=== PATIENT | male | born 1995 | race Asian ===

== ENCOUNTER 2017-06-15 05:32 | Inpatient (IN) | payer BC ==
[~2017-06-15] VITALS: Ht 188 cm; Wt 181.7 kg
[2017-06-15 06:55] LABS: BASOPHIL % 0.6 % (0-2); PLATELET COUNT 267 x10^3mcL (130-400)
[2017-06-15 07:08] LABS: CALCIUM 8.7 mg/dL (8.5-10.1); CHLORIDE SERUM 103 mmol/L (98-107); CREATININE SERUM 0.9 mg/dL (0.7-1.3); GFR1 > 60 mL/min; GLUCOSE SERUM 110 mg/dL (74-106); POTASSIUM SERUM 4.2 mmol/L (3.5-5.1); SODIUM SERUM 140 mmol/L (136-145)
[2017-06-15 07:12] LABS: ALBUMIN 3.3 g/dL (3.4-5.0); ALKALINE PHOSPHATASE 124 U/L (46-116); ALT/SGPT 71 U/L (16-63); AST/SGOT 44 U/L (15-37); BILIRUBIN TOTAL 0.42 mg/dL (0.20-1.00); TOTAL PROTEIN, SERUM 7.5 g/dL (6.4-8.2)
[2017-06-15 07:36] LABS: T3 TOTAL 1.57 ng/mL
[2017-06-15 07:55] LABS: FREE T4 0.95 ng/dL (0.76-1.46); FREE THYROXINE INDEX 2.9 ug/dL (1.4-4.5); T4(THYROXINE) 8.2 ug/dL (4.7-13.3)
[2017-06-15 08:18] LABS: AMPHETAMINE QUAL UR NONE DETECTED (NEG <=1000)
[2017-06-15 10:18] LABS: CHOLESTEROL/HDL RATIO 6.5; MAGNESIUM 1.8 mg/dL (1.8-2.4); PHOSPHOROUS 4.5 mg/dL (2.5-4.9)
[2017-06-15 11:27] VITALS: BP 129/77
[2017-06-15 13:24] LABS: UA SPECIFIC GRAVITY >=1.030 (1.005-1.035); microscopic required? YES; urine erythrocyte NEGATIVE (NEGATIVE)
[2017-06-15 16:11] VITALS: BP 133/79
[2017-06-15 19:44] VITALS: BP 106/70
[2017-06-16 00:03] VITALS: BP 119/69
[2017-06-16 04:11] VITALS: BP 142/82
[2017-06-16 05:10] LABS: BASOPHIL % 0.5 % (0-2); PLATELET COUNT 268 x10^3mcL (130-400); RED CELL DISTRIBUTION WIDTH 13.5 % (11.5-14.5)
[2017-06-16 05:48] LABS: CALCIUM 8.5 mg/dL (8.5-10.1); CARBON DIOXIDE 26.3 mmol/L (21-32); CHLORIDE SERUM 104 mmol/L (98-107); GFR1 > 60 mL/min; GLUCOSE SERUM 116 mg/dL (74-106); MAGNESIUM 1.9 mg/dL (1.8-2.4); PHOSPHOROUS 3.7 mg/dL (2.5-4.9); POTASSIUM SERUM 4.1 mmol/L (3.5-5.1); SODIUM SERUM 141 mmol/L (136-145)
[2017-06-16 07:30] VITALS: BP 127/57
[2017-06-16 11:35] VITALS: Ht 188 cm; Wt 181.7 kg
[2017-06-16 12:32] VITALS: BP 157/93
[2017-06-16 15:32] VITALS: BP 154/68
[2017-06-16 21:44] VITALS: BP 136/85
[2017-06-17 05:58] VITALS: BP 148/85
[2017-06-17 06:23] LABS: BASOPHIL % 0.3 % (0-2); PLATELET COUNT 260 x10^3mcL (130-400); RED CELL DISTRIBUTION WIDTH 13.2 % (11.5-14.5)
[2017-06-17 06:47] LABS: CALCIUM 8.8 mg/dL (8.5-10.1); CARBON DIOXIDE 25.5 mmol/L (21-32); CHLORIDE SERUM 104 mmol/L (98-107); GFR1 > 60 mL/min; GLUCOSE SERUM 102 mg/dL (74-106); PHOSPHOROUS 4.2 mg/dL (2.5-4.9); SODIUM SERUM 139 mmol/L (136-145)
[2017-06-17 09:04] VITALS: BP 149/80
[2017-06-17] MEDS ORDERED: LEVAQUIN750 MG PO (10:16)
[2017-06-17] MEDS ORDERED: LAC PO (10:17)
[2017-06-17 11:45] VITALS: BP 105/66
[2017-06-17 13:57] VITALS: BP 105/66
[2017-06-17 15:45] VITALS: BP 133/85
[2017-06-17] MEDS ORDERED: LOPRESSOR100 M1 PO (16:14)
[2017-06-17 20:39] VITALS: BP 132/66
[2017-06-18 06:28] VITALS: BP 126/71
[2017-06-18 06:39] LABS: BASOPHIL % 0.3 % (0-2); PLATELET COUNT 267 x10^3mcL (130-400); RED CELL DISTRIBUTION WIDTH 13.2 % (11.5-14.5)
[2017-06-18 06:53] LABS: CALCIUM 8.7 mg/dL (8.5-10.1); CARBON DIOXIDE 25.6 mmol/L (21-32); CHLORIDE SERUM 106 mmol/L (98-107); CREATININE SERUM 0.9 mg/dL (0.7-1.3); GFR1 > 60 mL/min; GLUCOSE SERUM 102 mg/dL (74-106); MAGNESIUM 1.9 mg/dL (1.8-2.4); PHOSPHOROUS 4.6 mg/dL (2.5-4.9); POTASSIUM SERUM 4.3 mmol/L (3.5-5.1); SODIUM SERUM 142 mmol/L (136-145)
[2017-06-18 09:47] VITALS: BP 116/82
[2017-06-18 14:04] VITALS: BP 115/75
[2017-06-18] MEDS ORDERED: CAR60 PO (16:39)
[2017-06-18] MEDS ORDERED: GOOD SENSE ASPI81 M3 PO (16:40)
== END 2017-06-18 17:08 | disposition home or self-care (01) | DRG 309 ==
LOC: ED 05:32 → IC 08:33 → EDBEDREQSVC 08:33 → DU 08:33 → EDBEDREQ 08:33 → IC 11:14 → DU 06-16 16:12
PROVIDERS: Emergency Medicine; Family Medicine; Family Medicine Sports Medicine; Specialist
DX: I48.91 Unspecified atrial fibrillation (principal); Z68.43 Body mass index [BMI] 50.0-59.9, adult; N39.0 Urinary tract infection, site not specified; E44.1 Mild protein-calorie malnutrition; E78.5 Hyperlipidemia, unspecified; E66.01 Morbid (severe) obesity due to excess calories; B35.1 Tinea unguium; L03.032 Cellulitis of left toe; I42.2 Other hypertrophic cardiomyopathy; I07.1 Rheumatic tricuspid insufficiency; L03.031 Cellulitis of right toe; R74.0 Nonspecific elevation of levels of transaminase and lactic acid dehydrogenase [LDH]; M10.9 Gout, unspecified; R73.03 Prediabetes; Z82.5 Family history of asthma and other chronic lower respiratory diseases; Z84.89 Family history of other specified conditions
CPT/HCPCS: 83880; 84439; G0480; J0696; J3490; J7030; Q0092

== ENCOUNTER 2020-05-07 20:04 | Inpatient (IN) | payer BC ==
[~2020-05-07] VITALS: Ht 188 cm; Wt 192.1 kg
[~2020-05-07 20:04] MED LIST: CAR60 PO; GOOD SENSE ASPI81 M3 PO; LAC PO; LEVAQUIN750 MG PO; LOPRESSOR100 M1 PO
[2020-05-07 20:45] VITALS: Ht 188 cm; Wt 192.1 kg
[2020-05-07 23:13] LABS: T3 TOTAL 1.09 ng/mL
[2020-05-07 23:54] LABS: CALCIUM 8.2 mg/dL (8.5-10.1); CHLORIDE SERUM 109 mmol/L (98-107); CREATININE SERUM 1.3 mg/dL (0.7-1.3); GFR1 > 60 mL/min; GLUCOSE SERUM 94 mg/dL (74-106); POTASSIUM SERUM 4.5 mmol/L (3.5-5.1); SODIUM SERUM 146 mmol/L (136-145)
[2020-05-07 23:58] LABS: BASOPHIL % 0.7 % (0.2-1.5); PLATELET COUNT 275 x10^3mcL (152-348)
[2020-05-08 00:01] LABS: RED CELL DISTRIBUTION WIDTH 15.1 % (12.1-16.2)
[2020-05-08 00:02] LABS: ALBUMIN 3.1 g/dL (3.4-5.0); ALKALINE PHOSPHATASE 101 U/L (46-116); ALT/SGPT 54 U/L (16-63); AST/SGOT 35 U/L (15-37); BILIRUBIN TOTAL 1.4 mg/dL (0.20-1.00); CHOLESTEROL 104 mg/dL (<200); CHOLESTEROL/HDL RATIO 4.5; HDL CHOLESTEROL 23 mg/dL (40-60); LIPASE 113 IU/L (73-393); TOTAL PROTEIN, SERUM 6.4 g/dL (6.4-8.2); TRIGLYCERIDES 92 mg/dL (<150)
[2020-05-08 00:21] LABS: rbc morphology (normal/abnorm) NORMAL (NORMAL)
[2020-05-08 00:42] LABS: FREE T4 1.43 ng/dL (0.76-1.46); FREE THYROXINE INDEX 3.9 ug/dL (1.4-4.5); T4(THYROXINE) 9.8 ug/dL (4.7-13.3)
[2020-05-08] MEDS ORDERED: ALLOPURINOL100 MG (01:07)
[2020-05-08 01:35] LABS: UA SPECIFIC GRAVITY >=1.030 (1.005-1.035); microscopic required? YES; urine erythrocyte NEGATIVE (NEGATIVE)
[2020-05-08 01:44] VITALS: BP 146/102
[2020-05-08 02:01] LABS: AMPHETAMINE QUAL UR NONE DETECTED (See below)
[2020-05-08 05:09] VITALS: BP 121/80
[2020-05-08 07:27] LABS: BASOPHIL % 0.6 % (0.2-1.5); PLATELET COUNT 269 x10^3mcL (152-348); RED CELL DISTRIBUTION WIDTH 14.5 % (12.1-16.2)
[2020-05-08 07:54] LABS: CALCIUM 8.5 mg/dL (8.5-10.1); CARBON DIOXIDE 26.2 mmol/L (21-32); CHLORIDE SERUM 107 mmol/L (98-107); CREATININE SERUM 1.2 mg/dL (0.7-1.3); GFR1 > 60 mL/min; GLUCOSE SERUM 106 mg/dL (74-106); POTASSIUM SERUM 4.4 mmol/L (3.5-5.1); SODIUM SERUM 145 mmol/L (136-145)
[2020-05-08 11:49] LABS: rbc morphology (normal/abnorm) NORMAL (NORMAL)
[2020-05-08 12:17] VITALS: BP 143/72
[2020-05-08 17:22] VITALS: BP 152/93
[2020-05-08 20:47] VITALS: BP 133/46
[2020-05-09 05:03] VITALS: BP 135/86
[2020-05-09 08:37] VITALS: BP 122/84
[2020-05-09 12:12] LABS: CALCIUM 8.3 mg/dL (8.5-10.1); CARBON DIOXIDE 28.3 mmol/L (21-32); CHLORIDE SERUM 105 mmol/L (98-107); CREATININE SERUM 1.4 mg/dL (0.7-1.3); GFR1 > 60 mL/min; GLUCOSE SERUM 75 mg/dL (74-106); POTASSIUM SERUM 3.8 mmol/L (3.5-5.1); SODIUM SERUM 142 mmol/L (136-145)
[2020-05-09 12:21] LABS: BASOPHIL % 0.7 % (0.2-1.5); PLATELET COUNT 237 x10^3mcL (152-348)
[2020-05-09 12:28] LABS: RED CELL DISTRIBUTION WIDTH 15.2 % (12.1-16.2); rbc morphology (normal/abnorm) NORMAL (NORMAL)
[2020-05-09 13:36] VITALS: BP 142/96
[2020-05-09 17:56] VITALS: BP 125/62
[2020-05-09 21:56] VITALS: BP 118/75
[2020-05-10] LABS: APPEARANCE FLUID HAZY; COLOR FLUID YELLOW; RBC FLUID 1313 /cumm; SOURCE FLUID THORACENTESIS; WBC FLUID 270 /cumm
[2020-05-10 00:02] LABS: LYMPHOCYTE FLUID 89 %; MONOCYTE FLUID 7 %
[2020-05-10 05:25] VITALS: BP 148/95
[2020-05-10 07:06] LABS: BASOPHIL % 0.5 % (0.2-1.5); PLATELET COUNT 217 x10^3mcL (152-348)
[2020-05-10 08:13] LABS: CALCIUM 8.4 mg/dL (8.5-10.1); CARBON DIOXIDE 29.4 mmol/L (21-32); CHLORIDE SERUM 105 mmol/L (98-107); CREATININE SERUM 1.4 mg/dL (0.7-1.3); GFR1 > 60 mL/min; GLUCOSE SERUM 87 mg/dL (74-106); POTASSIUM SERUM 3.5 mmol/L (3.5-5.1); SODIUM SERUM 144 mmol/L (136-145)
[2020-05-10 08:24] VITALS: BP 142/89
[2020-05-10 08:29] LABS: RED CELL DISTRIBUTION WIDTH 15.1 % (12.1-16.2)
[2020-05-10 12:03] VITALS: BP 153/75
[2020-05-10 14:16] LABS: ovalocyte/elliptocyte 1+; rbc morphology (normal/abnorm) ABNORMAL (NORMAL); tear drop cell (dacryocyte) 1+
[2020-05-10 16:24] VITALS: BP 147/71
[2020-05-10 21:34] VITALS: BP 121/95
[2020-05-11 06:11] VITALS: BP 95/83
[2020-05-11 08:28] LABS: BASOPHIL % 0.5 % (0.2-1.5); PLATELET COUNT 192 x10^3mcL (152-348)
[2020-05-11 08:29] LABS: CARBON DIOXIDE 31.1 mmol/L (21-32); CHLORIDE SERUM 100 mmol/L (98-107); CREATININE SERUM 1.3 mg/dL (0.7-1.3); GFR1 > 60 mL/min; GLUCOSE SERUM 88 mg/dL (74-106); POTASSIUM SERUM 3.5 mmol/L (3.5-5.1); SODIUM SERUM 138 mmol/L (136-145)
[2020-05-11 08:32] LABS: RED CELL DISTRIBUTION WIDTH 15.1 % (12.1-16.2)
[2020-05-11 08:33] LABS: rbc morphology (normal/abnorm) NORMAL (NORMAL)
[2020-05-11 09:03] VITALS: BP 126/94
[2020-05-11 13:31] VITALS: BP 109/70
[2020-05-11 17:00] VITALS: BP 138/81
[2020-05-11 21:53] VITALS: BP 113/79
[2020-05-12] VITALS (7 sets, daily range): BP systolic 116–136; BP diastolic 65–99
[2020-05-12 07:19] LABS: BASOPHIL % 0.2 % (0.2-1.5); PLATELET COUNT 203 x10^3mcL (152-348)
[2020-05-12 07:39] LABS: RED CELL DISTRIBUTION WIDTH 15.4 % (12.1-16.2); rbc morphology (normal/abnorm) NORMAL (NORMAL)
[2020-05-12 08:08] LABS: CALCIUM 8.5 mg/dL (8.5-10.1); CARBON DIOXIDE 27.4 mmol/L (21-32); CHLORIDE SERUM 104 mmol/L (98-107); GLUCOSE SERUM 108 mg/dL (74-106); POTASSIUM SERUM 4.1 mmol/L (3.5-5.1); SODIUM SERUM 143 mmol/L (136-145)
[2020-05-12 08:33] LABS: GFR1 > 60 mL/min
[2020-05-13 06:16] VITALS: BP 128/99
[2020-05-13 08:30] VITALS: BP 138/88
[2020-05-13 08:37] LABS: CALCIUM 8.4 mg/dL (8.5-10.1); CARBON DIOXIDE 32.6 mmol/L (21-32); CHLORIDE SERUM 102 mmol/L (98-107); CREATININE SERUM 1.1 mg/dL (0.7-1.3); GFR1 > 60 mL/min; GLUCOSE SERUM 97 mg/dL (74-106); POTASSIUM SERUM 3.7 mmol/L (3.5-5.1); SODIUM SERUM 142 mmol/L (136-145)
[2020-05-13 09:00] LABS: BASOPHIL % 0.3 % (0.2-1.5); PLATELET COUNT 234 x10^3mcL (152-348)
[2020-05-13 11:23] LABS: RED CELL DISTRIBUTION WIDTH 15.1 % (12.1-16.2)
[2020-05-13 14:46] LABS: rbc morphology (normal/abnorm) NORMAL (NORMAL)
[2020-05-13 16:09] VITALS: BP 123/83
[2020-05-13 21:19] VITALS: BP 130/84
[2020-05-14 06:50] VITALS: BP 155/87
[2020-05-14 08:40] VITALS: BP 149/92
[2020-05-14 09:01] LABS: CALCIUM 8.5 mg/dL (8.5-10.1); CARBON DIOXIDE 29.7 mmol/L (21-32); CHLORIDE SERUM 97 mmol/L (98-107); CREATININE SERUM 0.9 mg/dL (0.7-1.3); GFR1 > 60 mL/min; GLUCOSE SERUM 97 mg/dL (74-106); POTASSIUM SERUM 3.4 mmol/L (3.5-5.1); SODIUM SERUM 136 mmol/L (136-145)
[2020-05-14 22:00] VITALS: BP 121/84
[2020-05-15 06:43] VITALS: BP 139/89
[2020-05-15 07:53] LABS: BASOPHIL % 0.2 % (0.2-1.5); PLATELET COUNT 220 x10^3mcL (152-348)
[2020-05-15 08:09] LABS: RED CELL DISTRIBUTION WIDTH 15.6 % (12.1-16.2)
[2020-05-15 08:28] VITALS: BP 115/74; BP 139/99
[2020-05-15 08:43] LABS: CALCIUM 9.2 mg/dL (8.5-10.1); CARBON DIOXIDE 34.1 mmol/L (21-32); CHLORIDE SERUM 98 mmol/L (98-107); CREATININE SERUM 1.4 mg/dL (0.7-1.3); GFR1 > 60 mL/min; GLUCOSE SERUM 86 mg/dL (74-106); POTASSIUM SERUM 4.6 mmol/L (3.5-5.1); SODIUM SERUM 140 mmol/L (136-145)
[2020-05-15 13:40] LABS: rbc morphology (normal/abnorm) ABNORMAL (NORMAL)
[2020-05-15 16:39] VITALS: BP 126/66
[2020-05-15 21:16] VITALS: BP 112/64
[2020-05-16 05:16] VITALS: BP 118/79
[2020-05-16 09:31] VITALS: BP 104/56
[2020-05-16 11:51] VITALS: BP 105/50
[2020-05-16 21:08] VITALS: BP 127/85
[2020-05-17 06:12] VITALS: BP 123/63
[2020-05-17 08:23] LABS: BASOPHIL % 0.2 % (0.2-1.5); PLATELET COUNT 200 x10^3mcL (152-348)
[2020-05-17 08:44] LABS: CALCIUM 8.3 mg/dL (8.5-10.1); CARBON DIOXIDE 28.1 mmol/L (21-32); CHLORIDE SERUM 95 mmol/L (98-107); CREATININE SERUM 1.1 mg/dL (0.7-1.3); GFR1 > 60 mL/min; GLUCOSE SERUM 102 mg/dL (74-106); POTASSIUM SERUM 3.4 mmol/L (3.5-5.1); SODIUM SERUM 131 mmol/L (136-145)
[2020-05-17 08:54] VITALS: BP 131/59
[2020-05-17 11:16] LABS: RED CELL DISTRIBUTION WIDTH 15.4 % (12.1-16.2)
[2020-05-17] MEDS ORDERED: VITC PO (11:36)
[2020-05-17] MEDS ORDERED: TOP50 PO (11:36)
[2020-05-17] MEDS ORDERED: PROAIR RES117 MCG/Ac INH (11:36)
[2020-05-17] MEDS ORDERED: D-10001 TAB PO (11:36)
[2020-05-17] MEDS ORDERED: ZINC SULFATE220 MG PO (11:36)
[2020-05-17] MEDS ORDERED: ELIQUIS5 MG PO (11:38)
[2020-05-17 12:03] VITALS: BP 151/82
[2020-05-17 13:49] VITALS: BP 151/82
== END 2020-05-17 16:16 | disposition home or self-care (01) | DRG 273 ==
LOC: ED 20:04 → DU 23:13
PROVIDERS: Internal Medicine; Specialist; ADMIT Family Medicine; ATTEND Family Medicine
PROC: 0W993ZZ Drainage of Right Pleural Cavity, Percutaneous Approach (ICD-10-PCS; 2020-05-09)
PROC: 02583ZZ Destruction of Conduction Mechanism, Percutaneous Approach (ICD-10-PCS; 2020-05-15)
PROC: 4A0234Z Measurement of Cardiac Electrical Activity, Percutaneous Approach (ICD-10-PCS; 2020-05-15)
PROC: 02K83ZZ Map Conduction Mechanism, Percutaneous Approach (ICD-10-PCS; 2020-05-15)
PROC: 4A023FZ Measurement of Cardiac Rhythm, Percutaneous Approach (ICD-10-PCS; principal; 2020-05-15 10:00)
DX: I48.0 Paroxysmal atrial fibrillation (principal); U07.1 COVID-19; I50.21 Acute systolic (congestive) heart failure; Z68.43 Body mass index [BMI] 50.0-59.9, adult; J91.8 Pleural effusion in other conditions classified elsewhere; N17.9 Acute kidney failure, unspecified; I42.9 Cardiomyopathy, unspecified; E66.01 Morbid (severe) obesity due to excess calories; Z71.3 Dietary counseling and surveillance; Z82.5 Family history of asthma and other chronic lower respiratory diseases
CPT/HCPCS: 32555; 82962; 83880; 84439; 85378; 88344; 93613; 93620; 93621; C1729; C1730; C1766; C1894; C2630; G0378; G0480; J1100; J1644; J1650; J1940; J2001; J2250; J3010; J3490; J7030; Q9967; U0003